=== PATIENT | female | born 1950 | race Caucasian/White ===

== ENCOUNTER 2016-10-27 18:18 | Emergency (ER) | payer OTHER ==
--- NOTE | ~2016-10-27 | EKG ---
PATIENT: JULES LOPEZ UNIT #: [id number] Ventricular Rate: 86 BPM Atrial Rate: 86 BPM P-R Interval: 170 ms QRS Duration: 92 ms Q-T Interval: 368 ms QTC Calculation(Bezet): 440 ms P [place]: 76 degrees Calculated R [place]: 89 degrees Calculated T [place]: 26 degrees Diagnosis Line: Sinus rhythm with frequent Premature ventricular Diagnosis Line: complexes Diagnosis Line: Baseline wander Diagnosis Line: Borderline ECG Diagnosis Line: When compared with ECG of 28-JUL-2016 10:05, Diagnosis Line: No significant change was found Diagnosis Line: Confirmed by RADHA DICKENS MD ([id number]) on 10/30/2016 Diagnosis Line: 7:25:24 AM INTERPRETING MD: CHRISSIE NG
--- NOTE | ~2016-10-27 | CT71 ---
[facility] A Service of [facility] RADIOLOGY TEXT RESULTS PATIENT: JULES LOPEZ LOCATION: [facility] : 49 UNIT #: [id number] AGE: [address]: Andrey Farmer MD SEX: F ORDER DR: [id number] [facility] [address] [place], [place] [address] [id number] E MR#: [id number] Acc #: [id number] NAME: JULES LOPEZ : 1950 SEX: F STUDY DATE/TIME: 10/27/2016 19:10 UNIT: RAY ROOM: STUDY DESCRIPTION: CT Head Wo Contrast Attending Physician: Andrey Farmer M.D. Ordering Physician: Andrey Farmer M.D. Primary Care Physician: Evan Shankar M.D. MEDICAL IMAGING REPORT This report is preliminary unless electronic signature is present EXAM CT brain without contrast HISTORY Headache and dizzy for 3 weeks. No injury. TECHNIQUE This CT examination was performed with one or more of the following radiation dose reduction techniques: automatic exposure control, adjustment of mA and/or kV according to patient size, and iterative reconstruction. FINDINGS CT brain without contrast demonstrates mild chronic ischemic changes in the periventricular and subcortical white matter bilaterally, unchanged compared to 12/07/2014. Mild generalized cerebral cortical atrophy is stable. No intracranial hemorrhage, mass or edema is identified. No midline shift, ventricular dilatation or extraaxial fluid collection. IMPRESSION 1. No acute findings. 2. Mild chronic ischemic changes in the white matter bilaterally are unchanged compared to 12/07/2014. Dictated by... Daniel Lange M.D. THIS IS AN ELECTRONICALLY VERIFIED REPORT Daniel Lange M.D. at 10/28/2016 11:37 PM DFL/kayce [facility] A Service of [facility] RADIOLOGY TEXT RESULTS PATIENT: JULES LOPEZ LOCATION: [facility] : 49 UNIT #: [id number] AGE: [address]: Andrey Farmer MD SEX: F ORDER DR: TD: 10/28/2016 13:55 JOB #: [id number] MEDICAL IMAGING REPORT COPY
[~2016-10-27 18:18] MED LIST: ALBUTEROL17 G1 IH; ALBUTEROL20 ml INH; ALKA-SELTZER B324 M2 PO; ALKA-SELTZER H1 EACH; ALTACE PO; ALTACE2.5 MG PO; ANTIHISTAMINE PO; ASPIRIN325 M1 PO; AUGMENTIN875 MG PO; BENADRYL25 M3 PO; CARAFATE1 G PO; CODEIN PO; COMBIVENT U/D3 M1 INH; COUGH PO; DAYQUIL PO; DELSYM30 MG/5 ML PO; FLAGYL PO; FLONASE ALLERG9.9 ML; GUAIFENESIN; LEVOTHYROXINE100 MCG PO; LORTAB 5/500 TA1 TA1 PO; MAGNESIUM400 MG PO; MUCINEX OTC; MUCINEX PO; MULTIVITAMIN1 UDCAP PO; NYSTATIN5 ML PO; ORUDIS75 M1 PO; PANTOPRAZOLE SO40 MG PO; PEPCID AC20 M2 PO; PREDNISONE PO; PREDNISONE10 MG/DOSE PO; PREVACID PO; RAMIPRIL2.5 MG PO; REGLAN PO; REGLAN10 MG PO; SIMVASTATIN40 MG PO; SYMBICORT 160/4.6 G1 INH; SYMBICORT INH; SYNTHROID PO; SYNTHROID0.05 MG DOB; SYNTHROID0.1 MG PO; VIBRAMYCIN100 M1 DOB; ZANTAC150 M1 PO; ZANTAC150 MG PO; ZOCOR PO; ZYRTEC10 M1 PO; [UNRECOGNIZED DRUG - OTHER] PO
[2016-10-27 18:34] LABS: BASOPHIL# 0.1 X10e3 (0-0.3); BASOPHIL% 0.7 % (0-2.5); EOSINOPHIL# 0.1 X10e3 (0-0.7); EOSINOPHIL% 0.9 % (0.0-7.0); HEMATOCRIT 50.9 % (35.0-45.0); LYMPHOCYTE# 1.9 X10e3 (1.0-3.5); LYMPHOCYTE% 20.8 % (17.0-45.0); MEAN CELL VOLUME 94.6 FL (83-96); MEAN CORPUSCULAR HEMOGLOBIN 29.7 PG (28-34); MEAN CORPUSCULAR HGB CONC 31.4 g/dL (30-36); MEAN PLATELET VOLUME 8.2 FL (6.5-11.5); MONOCYTE# 0.8 X10e3 (0-1.0); MONOCYTE% 8.5 % (3.0-12.0); NEUTROPHIL# 6.3 X10e3 (1.5-7.1); NEUTROPHIL% 69.1 % (40-75); PLATELET COUNT 227 X10e3 (140-420); RED BLOOD COUNT 5.38 X10e (3.90-5.30); RED CELL DISTRIBUTION WIDTH 14.8 % (11.0-15.5); WHITE BLOOD COUNT 9.1 X10e3 (4.0-10.5)
[2016-10-27 18:35] LABS: DIFF IND NO
[2016-10-27 18:58] LABS: BLOOD UREA NITROGEN 16 mg/dL (9-23); CALCIUM SERUM 9.4 mg/dL (8.4-10.2); CARBON DIOXIDE 25 mmol/L (22-31); CHLORIDE 105 mmol/L (100-111); CREATININE SERUM 0.5 mg/dL (0.6-1.4); GLOM FILT RATE Estimated ABOVE60 mL/min (>60); GLUCOSE FASTING 119 mg/dL (70-110); POTASSIUM 4.1 mmol/L (3.5-5.1); SODIUM 136 mmol/L (135-145)
[2017-01-09] MEDS ORDERED: ATROVENT 0.03%30 ML (10:22)
[2017-03-01] MEDS ORDERED: RAMIPRIL2.5 M1 PO (15:30)
[2017-03-01] MEDS ORDERED: PANTOPRAZOLE SO40 MG PO (15:30)
[2017-03-01] MEDS ORDERED: LIPITOR20 MG PO (15:31)
[2017-03-01] MEDS ORDERED: TIROSINT75 MCG PO (15:31)
[2017-03-01] MEDS ORDERED: BREO ELLIPTA 11 EACH INH (15:32)
[2017-03-01] MEDS ORDERED: OXYGEN (15:32)
[2017-03-01] MEDS ORDERED: ALBUTEROL17 GM INH (15:33)
[2017-03-01] MEDS ORDERED: ZYRTEC10 M1 PO (15:34)
[2017-03-01] MEDS ORDERED: ATROVENT HFA12.9 GM INH (15:34)
[2017-03-01] MEDS ORDERED: TRAMADOL HCL50 M2 PO (15:35)
[2017-03-08] MEDS ORDERED: LEVOTHYROXINE100 MC1 PO (07:32)
[2017-03-08] MEDS ORDERED: NYSTATIN100000 UN1 (07:34)
== END 2016-10-27 20:45 | disposition home or self-care (01) ==
LOC: CED 18:18
PROVIDERS: Emergency Medicine
DX: R51 Headache (principal); R42 Dizziness and giddiness; J44.9 Chronic obstructive pulmonary disease, unspecified; F17.210 Nicotine dependence, cigarettes, uncomplicated; Z88.2 Allergy status to sulfonamides; Z88.8 Allergy status to other drugs, medicaments and biological substances; Z79.899 Other long term (current) drug therapy
CPT/HCPCS: 36415; 70450; 80048; 82947; 85025; 93005; 99284

== ENCOUNTER → 2016-11-06 | Outpatient (CLI) | payer OTHER ==
[~2016-11-06] MED LIST changes: +ALBUTEROL17 GM INH; +ATROVENT 0.03%30 ML; +ATROVENT HFA12.9 GM INH; +BREO ELLIPTA 11 EACH INH; +LEVOTHYROXINE100 MC1 PO; +LIPITOR20 MG PO; +NYSTATIN100000 UN1; +OXYGEN; +RAMIPRIL2.5 M1 PO; +TIROSINT75 MCG PO; +TRAMADOL HCL50 M2 PO; +ZOFRAN PO
== END | disposition home or self-care (01) ==
LOC: CLAB 10:52
DX: K29.70 Gastritis, unspecified, without bleeding (principal)
CPT/HCPCS: 87338

== ENCOUNTER → 2016-11-20 | Outpatient (CLI) | payer OTHER ==
--- NOTE | ~2016-11-20 | CT4 ---
[facility] A Service of [facility] RADIOLOGY TEXT RESULTS PATIENT: JULES LOPEZ [facility] UNIT #: [id number] AGE: [address]: Juan Gallardo MD SEX: F ORDER DR: [id number] [facility] [address] [place], [place] [address] [id number] O MR#: [id number] Acc #: [id number] NAME: JULES LOPEZ : 1950 SEX: F STUDY DATE/TIME: 11/20/2016 10:44 UNIT: [facility] ROOM: STUDY DESCRIPTION: CT Abd and Pelv Wo Cont Attending Physician: Juan Gallardo M.D. Referring Physician: Juan Gallardo M.D. Ordering Physician: Juan Gallardo M.D. Primary Care Physician: Evan Shankar M.D. MEDICAL IMAGING REPORT This report is preliminary unless electronic signature is present EXAM CT abdomen and pelvis without contrast. INDICATION Restaging extranodal marginal zone B-cell lymphoma. Chronic gastritis with bleeding. Generalized abdominal pain. PROCEDURE Unenhanced CT of the abdomen and pelvis. This CT exam was performed with one or more of the following radiation dose reduction techniques: automatic exposure control, adjustment of mA and/or kV according to patient size, and iterative reconstruction. COMPARISON 03/29/2016 FINDINGS Included lung bases are clear. ABDOMEN WITHOUT CONTRAST: Cirrhotic morphology of the liver. No appreciable liver mass on this unenhanced study. The spleen and pancreas unremarkable. Previous cholecystectomy. There is a 1.8 cm cyst in the left kidney. Adrenal glands are stable. Stomach is not significantly distended. No appreciable gastric mass. Possible fold thickening at the fundus of the stomach but this is similar to the prior and may be related to under distension. The bowel loops are nondilated. Appendix is nondilated. No abdominal adenopathy. PELVIS WITHOUT CONTRAST: No pelvic mass or adenopathy. No aggressive appearing bone lesion. IMPRESSION [facility] A Service of [facility] RADIOLOGY TEXT RESULTS PATIENT: JULES LOPEZ LOCATION: [facility] : 49 UNIT #: [id number] AGE: [address]: Juan Gallardo MD SEX: F ORDER DR: 1. No acute findings. 2. No abdominal or pelvic adenopathy. 3. Possible fold thickening in the fundus of the stomach is similar to the previous CT. This may simply be related to under distension. 4. Cirrhosis. Dictated by... Colt Howard M.D. THIS IS AN ELECTRONICALLY VERIFIED REPORT Colt Howard M.D. at 11/21/2016 7:11 AM SHREYA/kesha TD: 11/20/2016 15:22 JOB #: [id number] MEDICAL IMAGING REPORT Page 1 of 1 COPY
== END | disposition home or self-care (01) ==
LOC: CCAT 09:19
DX: C88.4 Extranodal marginal zone B-cell lymphoma of mucosa-associated lymphoid tissue [MALT-lymphoma] (principal); K29.50 Unspecified chronic gastritis without bleeding; K74.60 Unspecified cirrhosis of liver
CPT/HCPCS: 74176

== ENCOUNTER → 2017-01-02 | Outpatient (CLI) | payer OTHER ==
--- NOTE | ~2017-01-02 | US6 ---
[facility] A Service of [facility] RADIOLOGY TEXT RESULTS PATIENT: JULES LOPEZ LOCATION: [facility] : 49 UNIT #: [id number] AGE: [address]: Dwight Morris MD SEX: F ORDER DR: [id number] [facility] [address] [place], [place] [address] [id number] O MR#: [id number] Acc #: [id number] NAME: JULES LOPEZ : 1950 SEX: F STUDY DATE/TIME: 01/02/2017 10:06 UNIT: [facility] ROOM: STUDY DESCRIPTION: US Abdominal Limited Attending Physician: Dwight Morris M.D. Referring Physician: Dwight Morris M.D. Ordering Physician: Dwight Morris M.D. Primary Care Physician: Evan Shankar M.D. MEDICAL IMAGING REPORT This report is preliminary unless electronic signature is present EXAM Right upper quadrant abdominal ultrasound INDICATIONS Right upper quadrant abdominal pain. Elevated liver enzyme levels for the past 2 weeks. TECHNIQUE Antoine-scale and Doppler imaging right upper quadrant of the abdomen. COMPARISON None. FINDINGS Visualized portions of pancreas unremarkable. Majority of the body and tail obscured by bowel gas. Liver measures 13 cm. No liver mass on submitted images. Common duct measures up to 11 mm. Previous cholecystectomy. Right kidney measures 10.5 cm. No hydronephrosis. IMPRESSION 1. Previous cholecystectomy. Prominence of the common duct probably representing physiologic change. 2. Portions of the pancreas are obscured. Dictated by... Colt Howard M.D. THIS IS AN ELECTRONICALLY VERIFIED REPORT Colt Howard M.D. at 01/03/2017 7:35 AM EED/pcl [facility] A Service of [facility] RADIOLOGY TEXT RESULTS PATIENT: JULES LOPEZ LOCATION: [facility] : 49 UNIT #: [id number] AGE: [address]: Dwight Morris MD SEX: F ORDER DR: TD: 01/02/2017 22:30 JOB #: [id number] MEDICAL IMAGING REPORT Page 1 of 1 COPY
== END | disposition home or self-care (01) ==
LOC: CWCC 09:45
DX: R79.89 Other specified abnormal findings of blood chemistry (principal); Z90.49 Acquired absence of other specified parts of digestive tract
CPT/HCPCS: 76705

== ENCOUNTER → 2017-01-02 | Outpatient (CLI) | payer OTHER ==
[2017-01-02 11:52] LABS: HEMATOCRIT 48.7 % (35.0-45.0); HEMOGLOBIN 15.6 gm/dL (12.0-16.0); MEAN CELL VOLUME 94.6 FL (83-96); MEAN CORPUSCULAR HEMOGLOBIN 30.4 PG (28-34); MEAN CORPUSCULAR HGB CONC 32.1 g/dL (30-36); RED BLOOD COUNT 5.15 X10e (3.90-5.30); RED CELL DISTRIBUTION WIDTH 15.2 % (11.0-15.5); WHITE BLOOD COUNT 5.8 X10e3 (4.0-10.5)
[2017-01-02 12:47] LABS: ALBUMIN SERUM 4.2 g/dL (3.5-5.0); BUN/CREATININE RATIO 23.33; CALCIUM SERUM 10.1 mg/dL (8.4-10.2); CREATININE SERUM 0.6 mg/dL (0.6-1.4); GLOM FILT RATE Estimated 94.3 mL/min (>60); POTASSIUM 4.3 mmol/L (3.5-5.1); PROTEIN TOTAL SERUM 6.9 g/dL (6.0-8.3)
[2017-01-05 14:03] LABS: ANA SCREEN Negative (Negative)
== END | disposition home or self-care (01) ==
LOC: CLAB 10:50
PROVIDERS: Nurse Practitioner Family
DX: R79.89 Other specified abnormal findings of blood chemistry (principal)
CPT/HCPCS: 36415; 80053; 82105; 82728; 83516; 83520; 83540; 83550; 85027; 86038; 86039

== ENCOUNTER → 2017-01-09 | Day surgery (SDC) | payer OTHER ==
--- NOTE | ~2017-01-09 | CR84 ---
[facility] A Service of [facility] RADIOLOGY TEXT RESULTS PATIENT: JULES LOPEZ LOCATION: [facility] : 49 UNIT #: [id number] AGE: [address]: Dwight Morris MD SEX: F ORDER DR: [id number] [facility] [address] [place], [place] [address] [id number] O MR#: [id number] Acc #: [id number] NAME: JULES LOPEZ : 1950 SEX: F STUDY DATE/TIME: 01/09/2017 10:29 UNIT: [facility] ROOM: STUDY DESCRIPTION: CR ERCP Biliary and Pancr SI Attending Physician: Dwight Morris M.D. Ordering Physician: Dwight Morris M.D. Primary Care Physician: Evan Shankar M.D. MEDICAL IMAGING REPORT This report is preliminary unless electronic signature is present EXAM ERCP, 01/09/2017 HISTORY Abnormally elevated liver enzymes and dilated common bile duct on gallbladder ultrasound 01/02/17. Cholecystectomy. Elevated liver enzymes for the past 2 weeks. Right upper quadrant abdominal pain. FINDINGS ERCP was performed by Dr. Morris. Seven spot film radiographs of the upper abdomen were obtained and 3.9 minutes of fluoroscopy time was utilized. Surgical clips are seen in the right upper quadrant from prior cholecystectomy. The pancreatic duct was not injected. Contrast injection of the biliary tree was performed demonstrating dilatation of the common bile duct to 15 mm. The intrahepatic ducts are normal in caliber. No filling defects or strictures were seen. Sphincterotomy was performed by Dr. Morris. Balloon catheter was pulled retrograde through the common duct but no stones were obtained. A stent was then placed in the common bile duct. Dictated by... Marlon Boyce M.D. THIS IS AN ELECTRONICALLY VERIFIED REPORT Marlon Boyce M.D. at 01/11/2017 8:22 AM DESEAN/wing TD: 01/09/2017 20:19 JOB #: [id number] MEDICAL IMAGING REPORT Page 1 of 1 COPY
--- NOTE | ~2017-01-09 | CR4 ---
[facility] A Service of [facility] & [facility] RADIOLOGY TEXT RESULTS PATIENT: JULES LOPEZ LOCATION: [facility] : 49 UNIT #: [id number] AGE: [address]: Dwight Morris MD SEX: F ORDER DR: [id number] [facility] [address] [place], [place] [address] [id number] O MR#: [id number] Acc #: [id number] NAME: JULES LOPEZ : 1950 SEX: F STUDY DATE/TIME: 01/09/2017 14:03 UNIT: [facility] ROOM: STUDY DESCRIPTION: CR Abdomen Flat Upright or Dec Attending Physician: Dwight Morris M.D. Ordering Physician: Dwight Morris M.D. Primary Care Physician: Evan Shankar M.D. MEDICAL IMAGING REPORT This report is preliminary unless electronic signature is present EXAM Supine abdomen HISTORY Nausea and vomiting post ERCP stent placement. FINDINGS An AP view is obtained. Examination shows a right-sided biliary stent in place. There is some residual contrast in the common duct and there appears to be a distal duct stricture. Contrast media is identified in the distal small bowel. CONCLUSION Status post CBD stent placement. Stent appears in appropriate position. Dictated by... Danish Valladares M.D. THIS IS AN ELECTRONICALLY VERIFIED REPORT Danish Valladares M.D. at 01/10/2017 5:02 PM TALAT/wing TD: 01/09/2017 17:44 JOB #: [id number] MEDICAL IMAGING REPORT Page 1 of 1 COPY
--- NOTE | ~2017-01-09 | OR ---
Unit #: [id number] #: [id number] Patient: JULES LOPEZ [id number] [address] [place], [place] [address] [id number] O MR#: [id number] NAME: JULES LOPEZ ROOM: Date of Procedure: 01/09/2017 Admission Date: 01/09/2017 Surgeon: Dwight Morris M.D. : 1950 Attending Physician: Dwight Morris M.D. Primary Care Physician: Evan Shankar M.D. OPERATIVE REPORT PROCEDURES PERFORMED Esophagogastroduodenoscopy to descending duodenum, endoscopic retrograde cholangiopancreatography with sphincterotomy, endoscopic retrograde cholangiopancreatography with balloon extraction, and common bile duct stenting with a 7 x 7 stent. INDICATIONS FOR PROCEDURE The patient with abnormal LFT, particularly persistent severe elevation of alkaline phosphatase and mild elevation of AST and ALT, some right upper quadrant pain. Ultrasound showed dilated duct at 13 mm. She is status post previous laparoscopic cholecystectomy. MEDICATIONS Monitored anesthesia. POSTOPERATIVE FINDINGS 1. Dilated common bile duct up to 15 mm maximum. 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 2. Sphincterotomy was made. 3. Balloon extraction of the common bile duct carried out. No stones or sludge was seen. 4. 7 x 7 stent was placed across the duct to ensure drainage. 5. EGD showed evidence of incomplete esophageal ring and hiatal hernia. 6. Mild gastritis. PLAN 1. Continue with symptomatic treatment. 2. Follow up with LFTs, looking for improvement over next few weeks. DESCRIPTION OF PROCEDURE The patient was explained of the procedure, risks, and benefits along with risks and benefits of anesthesia. Risk of pancreatitis was discussed in detail. She was brought to the endoscopy room. EGD was done first. Scope was passed down the mouth into the esophagus, stomach, duodenum, and distal duodenum. Findings as described. No biopsies taken. Then, ERCP scope was then passed down the mouth into the esophagus and stomach. Ampulla was visualized. After a few attempts, I was able to get into the common bile duct. Findings have been described. There was small sphincterotomy made. Balloon extraction was then carried out, which was negative. 7 x 7 CBD stent was then placed across the duct successfully under fluoroscopic guidance. The scope was gently pulled out. Stomach was decompressed. She tolerated it well. Unit #: [id number] #: [id number] Patient: JULES LOPEZ Dictated by... Bismark Del Castillo/nina TD: 01/09/2017 22:30 JOB #: [id number] OPERATIVE REPORT Page 1 of 1 X Dwight Morris MD X PROCEDURE OPERATIVE NOTE
== END | disposition home or self-care (01) ==
LOC: COPS 08:31
DX: K22.2 Esophageal obstruction (principal); K29.70 Gastritis, unspecified, without bleeding; K44.9 Diaphragmatic hernia without obstruction or gangrene; E03.9 Hypothyroidism, unspecified; J44.9 Chronic obstructive pulmonary disease, unspecified; F17.210 Nicotine dependence, cigarettes, uncomplicated; Z87.01 Personal history of pneumonia (recurrent); Z87.19 Personal history of other diseases of the digestive system; Z90.89 Acquired absence of other organs; Z90.710 Acquired absence of both cervix and uterus; Z90.49 Acquired absence of other specified parts of digestive tract; Z91.041 Radiographic dye allergy status; Z88.2 Allergy status to sulfonamides; Z88.8 Allergy status to other drugs, medicaments and biological substances
CPT/HCPCS: 74020; 74330; J1610; J2250; J2405; J2550

== ENCOUNTER 2017-01-12 10:53 | Emergency (ER) | payer OTHER ==
--- NOTE | ~2017-01-12 | CT4 ---
[facility] A Service of [facility] & [facility] RADIOLOGY TEXT RESULTS PATIENT: JULES LOPEZ LOCATION: [facility] : 49 UNIT #: [id number] AGE: [address]: Franck Morris MD SEX: F ORDER DR: [id number] [facility] [address] [place], [place] [address] [id number] E MR#: [id number] Acc #: [id number] NAME: JULES LOPEZ : 1950 SEX: F STUDY DATE/TIME: 01/12/2017 12:46 UNIT: [facility] ROOM: STUDY DESCRIPTION: CT Abd and Pelv Wo Cont Attending Physician: Franck Morris M.D. Ordering Physician: Franck Morris M.D. Primary Care Physician: Evan Shankar M.D. MEDICAL IMAGING REPORT This report is preliminary unless electronic signature is present EXAM CT abdomen and pelvis without contrast HISTORY 66-year-old female with mid epigastric pain, nausea and vomiting since 01/09/2017. Patient underwent bile duct stent placement. COMPARISON CT abdomen and pelvis 11/20/2016. TECHNIQUE Axial images performed through the abdomen and pelvis and without contrast. Multiplanar reconstructed images reviewed at a workstation. This CT exam was performed with one or more of the following radiation dose reduction techniques: automatic exposure control, adjustment of mA and/or kV according to patient size, and iterative reconstruction. FINDINGS Lung bases unremarkable, except for some mild reticulonodular changes in the lung bases which may reflect prior inflammatory disease. A probable small amount of left basilar atelectasis. No effusions. The liver demonstrates a small amount of pneumobilia, not unexpected in this patient with a biliary stent in place. The stent is in expected position. Spleen appears normal. Pancreas unremarkable. The right adrenal gland appears normal. The left adrenal gland demonstrates calcifications. This is unchanged from prior studies. Probable left renal cortical cyst. The stomach, small bowel unremarkable. Mild prominence of the colonic wall which appears relatively diffuse, could reflect underlying colitis. There is scattered diverticular changes. No evidence of obstruction. Retroperitoneum unremarkable except for mild aortic atherosclerotic changes. STS. [facility] A Service of [facility] & [facility] RADIOLOGY TEXT RESULTS PATIENT: JULES LOPEZ LOCATION: [facility] #: [id number] : 48 UNIT #: [id number] AGE: [address]: Franck Morris MD SEX: F ORDER DR: The appendix is normal. PELVIS: Bladder unremarkable. Uterus surgically absent. Osseous structures and soft tissues appear normal. IMPRESSION 1. Biliary stent in expected position with a small amount of pneumobilia, normal expected findings. Patient is post cholecystectomy. 2. Mild thickening of colonic wall, primarily in the transverse and descending colon and sigmoid colon. This is nonspecific, could reflect underlying colitis. There are scattered diverticular changes but no evidence of focal diverticulitis. 3. Benign left adrenal calcifications may be related prior adrenal hemorrhage. Dictated by... Justin Naik M.D. THIS IS AN ELECTRONICALLY VERIFIED REPORT Justin Naik M.D. at 01/18/2017 1:42 PM WALTER/ratna TD: 01/12/2017 17:38 JOB #: [id number] MEDICAL IMAGING REPORT Page 1 of 1 COPY
--- NOTE | ~2017-01-12 | CR63 ---
[facility] A Service of [facility] RADIOLOGY TEXT RESULTS PATIENT: JULES LOPEZ LOCATION: [facility] : 48 UNIT #: [id number] AGE: [address]: Franck Morris MD SEX: F ORDER DR: [id number] [facility] [address] [place], [place] [address] [id number] E MR#: [id number] Acc #: [id number] NAME: JULES LOPEZ : 1950 SEX: F STUDY DATE/TIME: 01/12/2017 12:31 UNIT: [facility] ROOM: STUDY DESCRIPTION: CR Chest 2 View Attending Physician: Franck Morris M.D. Ordering Physician: Franck Morris M.D. Primary Care Physician: Evan Shankar M.D. MEDICAL IMAGING REPORT This report is preliminary unless electronic signature is present EXAM Chest x-ray. HISTORY Diffuse chest pain with shortness of breath and nausea since the bowel stent surgery on 01/09/17. TECHNIQUE A single AP view of the chest was obtained and compared with 07/28/16. FINDINGS There is mild volume loss at the left costophrenic angle. This could reflect either fibrosis or basilar atelectasis. It is more prominent than on the previous exam. The right lung is clear. The heart and mediastinum are stable and the vascular pattern is normal. IMPRESSION There is increased blunting and volume loss at the left lung base since the previous examination. Probable atelectasis versus chronic fibrosis. The remaining lung meza are unchanged. Dictated by... Andrey Morley M.D. THIS IS AN ELECTRONICALLY VERIFIED REPORT Andrey Morley M.D. at 01/16/2017 2:25 PM LUIS MANUEL/fernando TD: 01/12/2017 16:38 JOB #: [id number] MEDICAL IMAGING REPORT [facility] A Service of [facility] RADIOLOGY TEXT RESULTS PATIENT: JULES LOPEZ LOCATION: [facility] #: [id number] : 48 UNIT #: [id number] AGE: [address]: Franck Morris MD SEX: F ORDER DR: Page 1 of 1 COPY
--- NOTE | ~2017-01-12 | EKG ---
PATIENT: JULES LOPEZ UNIT #: [id number] Ventricular Rate: 75 BPM Atrial Rate: 75 BPM P-R Interval: 152 ms QRS Duration: 88 ms Q-T Interval: 368 ms QTC Calculation(Bezet): 410 ms P [place]: 56 degrees Calculated R [place]: 40 degrees Calculated T [place]: -42 degrees Diagnosis Line: Normal sinus rhythm Diagnosis Line: Nonspecific ST and T wave abnormality Diagnosis Line: Abnormal ECG Diagnosis Line: When compared with ECG of 27-OCT-2016 19:32, Diagnosis Line: Premature ventricular complexes are no longer Diagnosis Line: Present Diagnosis Line: Nonspecific T wave abnormality now evident in Diagnosis Line: Lateral leads Diagnosis Line: Confirmed by RADHA WATSON MD ([id number]) on Diagnosis Line: 01/13/2017 1:42:03 PM INTERPRETING MD: AWA
[~2017-01-12 10:53] MED LIST changes: -ALBUTEROL17 GM INH; -ATROVENT HFA12.9 GM INH; -BREO ELLIPTA 11 EACH INH; -LEVOTHYROXINE100 MC1 PO; -LIPITOR20 MG PO; -NYSTATIN100000 UN1; -OXYGEN; -RAMIPRIL2.5 M1 PO; -TIROSINT75 MCG PO; -TRAMADOL HCL50 M2 PO; -ZOFRAN PO
[2017-01-12 11:36] LABS: POC - CKMB 5.4 ng/mL (0.0-7.9); POC - TROPONIN <0.05 ng/mL (<=0.05)
[2017-01-12] MEDS ORDERED: ZOFRAN PO (11:42)
[2017-01-12 11:55] LABS: BASOPHIL# 0.1 X10e3 (0-0.3); BASOPHIL% 0.6 % (0-2.5); DIFF IND NO; EOSINOPHIL% 0.2 % (0.0-7.0); HEMOGLOBIN 16.7 gm/dL (12.0-16.0); LYMPHOCYTE# 1.1 X10e3 (1.0-3.5); LYMPHOCYTE% 12.2 % (17.0-45.0); MEAN CELL VOLUME 92.7 FL (83-96); MEAN CORPUSCULAR HEMOGLOBIN 30.5 PG (28-34); MEAN CORPUSCULAR HGB CONC 32.9 g/dL (30-36); MEAN PLATELET VOLUME 8.4 FL (6.5-11.5); MONOCYTE# 0.5 X10e3 (0-1.0); MONOCYTE% 5.3 % (3.0-12.0); NEUTROPHIL# 7.1 X10e3 (1.5-7.1); NEUTROPHIL% 81.7 % (40-75); PLATELET COUNT 259 X10e3 (140-420); RED CELL DISTRIBUTION WIDTH 14.6 % (11.0-15.5); WHITE BLOOD COUNT 8.6 X10e3 (4.0-10.5)
[2017-01-12 12:27] LABS: ALBUMIN SERUM 3.9 g/dL (3.5-5.0); BILIRUBIN, DIRECT 0.2 mg/dL (0.0-0.2); BILIRUBIN,INDIRECT 0.6 mg/dL (0.0-0.9); BILIRUBIN,TOTAL 0.8 mg/dL (0.2-2.0); BUN/CREATININE RATIO 33.33; CALCIUM SERUM 9.1 mg/dL (8.4-10.2); CREATININE SERUM 0.6 mg/dL (0.6-1.4); GLOM FILT RATE Estimated 94.3 mL/min (>60); POTASSIUM 3.6 mmol/L (3.5-5.1); PROTEIN TOTAL SERUM 6.9 g/dL (6.0-8.3)
[2017-01-12 13:55] LABS: POC - CKMB 4.4 ng/mL (0.0-7.9); POC - TROPONIN <0.05 ng/mL (<=0.05)
[2017-03-01] MEDS ORDERED: PANTOPRAZOLE SO40 MG PO (15:30)
[2017-03-01] MEDS ORDERED: RAMIPRIL2.5 M1 PO (15:30)
[2017-03-01] MEDS ORDERED: LIPITOR20 MG PO (15:31)
[2017-03-01] MEDS ORDERED: TIROSINT75 MCG PO (15:31)
[2017-03-01] MEDS ORDERED: OXYGEN (15:32)
[2017-03-01] MEDS ORDERED: BREO ELLIPTA 11 EACH INH (15:32)
[2017-03-01] MEDS ORDERED: ALBUTEROL17 GM INH (15:33)
[2017-03-01] MEDS ORDERED: ATROVENT HFA12.9 GM INH (15:34)
[2017-03-01] MEDS ORDERED: ZYRTEC10 M1 PO (15:34)
[2017-03-01] MEDS ORDERED: TRAMADOL HCL50 M2 PO (15:35)
[2017-03-08] MEDS ORDERED: LEVOTHYROXINE100 MC1 PO (07:32)
[2017-03-08] MEDS ORDERED: NYSTATIN100000 UN1 (07:34)
== END 2017-01-12 16:34 | disposition home or self-care (01) ==
LOC: CED 10:53
PROVIDERS: Emergency Medicine
DX: R07.9 Chest pain, unspecified (principal); R10.9 Unspecified abdominal pain; I10 Essential (primary) hypertension; I48.91 Unspecified atrial fibrillation; F17.200 Nicotine dependence, unspecified, uncomplicated; Z90.49 Acquired absence of other specified parts of digestive tract; Z90.710 Acquired absence of both cervix and uterus; Z98.890 Other specified postprocedural states
CPT/HCPCS: 36415; 71020; 74176; 80048; 80076; 82150; 82553; 83690; 84484; 85025; 93005; 94640; 96361; 96374; 96375; 99284; J2270; J2405

== ENCOUNTER → 2017-03-08 | Day surgery (SDC) | payer OTHER ==
[~2017-03-08] MED LIST changes: +ALBUTEROL17 GM INH; +ATROVENT HFA12.9 GM INH; +BREO ELLIPTA 11 EACH INH; +LEVOTHYROXINE100 MC1 PO; +LIPITOR20 MG PO; +NYSTATIN100000 UN1; +OXYGEN; +RAMIPRIL2.5 M1 PO; +TIROSINT75 MCG PO; +TRAMADOL HCL50 M2 PO; +ZOFRAN PO
--- NOTE | ~2017-03-08 | OR ---
Unit #: [id number] #: [id number] Patient: JULES LOPEZ [id number] [address] [id number] O MR#: [id number] NAME: JULES LOPEZ ROOM: Date of Procedure: 03/08/2017 Admission Date: 03/08/2017 Surgeon: Dwight Morris M.D. : 1950 Attending Physician: Dwight Morris M.D. Primary Care Physician: Evan Shankar M.D. OPERATIVE REPORT PROCEDURES PERFORMED Esophagogastroduodenoscopy with stent removal, esophagogastroduodenoscopy with biopsies. INDICATION The patient with previous ERCP with sphincterotomy and stent placement of common bile duct, undergoing evaluation and removal of the stent. MEDICATIONS Monitored anesthesia. POSTOPERATIVE FINDINGS 1. Existing CBD stent was removed under fluoroscopic guidance using a snare, with an EGD scope. 2. Chronic appearing gastritis, multiple biopsies taken. 3. Small hiatal hernia. PLAN Continue PPI therapy. The patient to follow up in the office in 4 to 6 weeks. DESCRIPTION OF PROCEDURE The patient was explained of the procedure, risks, and benefits along with risks and benefits of anesthesia. She was brought to the endoscopy room. Propofol anesthesia was given. Bite block was placed. The scope was passed down the mouth and esophagus, stomach, duodenum, and distal duodenum. Stent was seen extending out of the ampulla. Using a snare, I was able to pull it out and under fluoroscopic guidance. The scope was then pulled back in the stomach. Findings as described. Biopsies taken. Gently I pulled the scope out of the patient's mouth. She tolerated it well. No major complications were seen. Dictated by... Bismark Del Castillo/nina TD: 03/16/2017 14:28 JOB #: [id number] Unit #: [id number] #: [id number] Patient: JULES LOPEZ OPERATIVE REPORT Page 1 of 1 X Dwight Morris MD X PROCEDURE OPERATIVE NOTE
--- NOTE | ~2017-03-08 | CR84 ---
[facility] A Service of [facility] RADIOLOGY TEXT RESULTS PATIENT: JULES LOPEZ LOCATION: [facility] : 48 UNIT #: [id number] AGE: [address]: Dwight Morris MD SEX: F ORDER DR: [id number] [facility] [address] [place], [place] [address] [id number] O MR#: [id number] Acc #: [id number] NAME: JULES LOPEZ : 1950 SEX: F STUDY DATE/TIME: 03/08/2017 9:29 UNIT: [facility] ROOM: STUDY DESCRIPTION: CR ERCP Biliary and Pancr SI Attending Physician: Dwight Morris M.D. Ordering Physician: Dwight Morris M.D. Primary Care Physician: Evan Shankar M.D. MEDICAL IMAGING REPORT This report is preliminary unless electronic signature is present EXAM ERCP, 03/08/2017 HISTORY ERCP performed for biliary stent removal. FINDINGS ERCP was performed by Dr. Morris. Two spot film radiographs of the right upper quadrant were obtained and 0.1 minutes of fluoroscopy time was utilized. The two radiographs show removal of the stent from the right upper quadrant. Dictated by... Marlon Boyce M.D. THIS IS AN ELECTRONICALLY VERIFIED REPORT Marlon Boyce M.D. at 03/09/2017 10:24 AM DESEAN/rosa TD: 03/08/2017 20:23 JOB #: [id number] MEDICAL IMAGING REPORT Page 1 of 1 COPY
== END | disposition home or self-care (01) ==
LOC: COPS 03-01 08:30
DX: Z46.89 Encounter for fitting and adjustment of other specified devices (principal); K29.50 Unspecified chronic gastritis without bleeding; K44.9 Diaphragmatic hernia without obstruction or gangrene; K21.9 Gastro-esophageal reflux disease without esophagitis; J44.9 Chronic obstructive pulmonary disease, unspecified; I35.0 Nonrheumatic aortic (valve) stenosis; E03.9 Hypothyroidism, unspecified; Z88.2 Allergy status to sulfonamides; Z91.041 Radiographic dye allergy status; F17.200 Nicotine dependence, unspecified, uncomplicated
CPT/HCPCS: 74330; 88305; 88312; J1610; J2250; J2405

== ENCOUNTER → 2017-04-05 | Outpatient (CLI) | payer OTHER ==
[2017-04-05 12:04] LABS: HEMATOCRIT 43.8 % (35.0-45.0); HEMOGLOBIN 14.1 gm/dL (12.0-16.0); MEAN CELL VOLUME 94.3 FL (83-96); MEAN CORPUSCULAR HEMOGLOBIN 30.4 PG (28-34); MEAN CORPUSCULAR HGB CONC 32.3 g/dL (30-36); MEAN PLATELET VOLUME 7.4 FL (6.5-11.5); RED BLOOD COUNT 4.64 X10e (3.90-5.30); RED CELL DISTRIBUTION WIDTH 14.7 % (11.0-15.5); WHITE BLOOD COUNT 6.2 X10e3 (4.0-10.5)
[2017-04-05 12:59] LABS: ALBUMIN SERUM 3.9 g/dL (3.5-5.0); BILIRUBIN,TOTAL 0.6 mg/dL (0.2-2.0); BUN/CREATININE RATIO 18.33; CALCIUM SERUM 9.4 mg/dL (8.4-10.2); CREATININE SERUM 0.6 mg/dL (0.6-1.4); GLOM FILT RATE Estimated 93.7 mL/min (>60); POTASSIUM 4.1 mmol/L (3.5-5.1); PROTEIN TOTAL SERUM 6.2 g/dL (6.0-8.3)
== END | disposition home or self-care (01) ==
LOC: CLAB 11:09
PROVIDERS: Internal Medicine
DX: K83.1 Obstruction of bile duct (principal)
CPT/HCPCS: 36415; 80053; 85027